=== PATIENT | female | born 1995 | race Caucasian/White ===

== ENCOUNTER 2025-02-23 12:54 | Emergency (ER) | payer SELFPAY ==
[~2025-02-23] VITALS: Ht 165.1 cm; Wt 45.4 kg
[2025-02-23 13:06] VITALS: BP 124/97; PULSE 90; RESP 16; TEMP 98.4; O2SAT 100
== END 2025-02-23 14:16 | disposition left against medical advice (07) ==
LOC: ER 12:55
DX: R53.1 Weakness (principal); R63.0 Anorexia; Z53.21 Procedure and treatment not carried out due to patient leaving prior to being seen by health care provider; Z88.1 Allergy status to other antibiotic agents

== ENCOUNTER 2025-03-10 11:13 | Emergency (ER) | payer MEDICAID ==
[~2025-03-10] VITALS: Ht 167.6 cm; Wt 45.9 kg
[2025-03-10 12:18] LABS: BASOPHILS % (AUTO) 0.6 % (0-1); EOSINOPHILS # (AUTO) 0.1 X10'3 (0-0.9); HEMATOCRIT 28.3 % (35.0-45.0); HEMOGLOBIN 8.9 g/dl (12.0-16.0); LYMPHOCYTES # (AUTO) 1.1 X10'3 (1.1-4.8); LYMPHOCYTES % (AUTO) 26.2 % (21-51); MEAN CORPUSCULAR HEMOGLOBIN 20.5 PG (27.0-31.0); MEAN CORPUSCULAR HGB CONC 31.6 g/dL (33.0-36.5); MEAN CORPUSCULAR VOLUME 64.9 FL (78-98); MEAN PLATELET VOLUME 8.7 FL (7.4-10.4); MONOCYTES # (AUTO) 0.4 X10'3 (0-0.9); MONOCYTES % (AUTO) 8.2 % (2-12); NEUTROPHILS # (AUTO) 2.7 X10'3 (1.8-7.7); PLATELET COUNT 228 X10'3 (140-440); RED BLOOD COUNT 4.36 X10'6 (4.20-5.60); WHITE BLOOD COUNT 4.3 X10'3 (4.5-11.0)
[2025-03-10 12:19] LABS: BILIRUBIN,URINE NEGATIVE (Neg); CLARITY,URINE CLEAR (Clear); COLOR,URINE YELLOW (Yellow); GLUCOSE, URINE NEGATIVE (Neg); KETONES,URINE 40 mg/dl (Neg); LEUKOCYTE ESTERASE ,URINE NEGATIVE (Neg); NITRITES, URINE NEGATIVE (Neg); OCCULT BLOOD,URINE LARGE (Neg); PH,URINE 7.5 (4.8-8.0); PROTEIN,URINE NEGATIVE (Neg); UROBILINOGEN,URINE 0.2 E.U/dL (0.2-1.0)
[2025-03-10 12:25] LABS: URINE HCG NEGATIVE (NEG)
[2025-03-10 12:27] LABS: UA COLLECTION TYPE VOIDED
[2025-03-10 12:29] LABS: BACTERIA,URINE FEW /HPF (Neg); MUCUS STRANDS FEW /LPF (Neg); SQUAMOUS EPITHELIAL CELL,UR FEW /LPF (FEW); WBC,URINE 0-4 /HPF (0-4)
[2025-03-10 12:32] LABS: ANISOCYTOSIS 3+; HYPOCHROMASIA 2+; MICROCYTOSIS 2+; PLATELET ESTIMATE NORMAL
[2025-03-10 12:33] LABS: ALANINE AMINOTRANSFERASE 16 U/L (12-78); ALBUMIN 3.8 G/DL (3.4-5.0); ALBUMIN/GLOBULIN RATIO 1.2 (1.1-1.5); ALKALINE PHOSPHATASE 47 IU/L (46-116); ANION GAP 12 (8-16); ASPARTATE AMINO TRANSFERASE 15 U/L (10-37); BILIRUBIN,TOTAL 0.8 MG/DL (0.1-1.0); BLOOD UREA NITROGEN 13 MG/DL (7-18); BUN/CREATININE RATIO 16.9 (10.0-20.0); CALCIUM 8.5 MG/DL (8.5-10.1); CHLORIDE 106 MMOL/L (99-107); CREATININE 0.77 MG/DL (0.40-0.90); ELLIPTOCYTES FEW; GLUCOSE 90 MG/DL (70-104); POTASSIUM 3.3 MMOL/L (3.5-5.1); SODIUM 138 MMOL/L (135-145); TEAR DROP CELLS FEW; TOTAL PROTEIN 6.9 G/DL (6.4-8.2); eCRCL 79 ML/MIN; eGFR 89 ML/MIN
--- NOTE | 2025-03-10 13:05 | Physician Documentation ---
History of Present Illness ~ Chief Complaint: Dizziness Stated Complaint: DIZZY/HEADACHE Time Seen by MD: 11:24 Primary Medical Doctor: None Mode of Arrival: EMS, Ambulatory HPI 29 year old female reports that she was moving boxes at a storage unit today and briefly felt weak and dizzy. BIB EMS. She is asymptomatic now including no complaints of headache, fevers, chest pain, SOB, dizziness, N/V/D, urinary symptoms. Medication Reconciliation Allergies: Coded Allergies: amoxicillin (Verified Allergy, Unknown, 02/23/25) pineapple (Verified Allergy, Unknown, unknown, 03/10/25) Uncoded Allergies: CANTELOPE (Allergy, Unknown, 03/10/25) Past Medical History Last Menstrual Period: Mar 08, 2025 Review of Systems All Other Systems at this time: Reviewed and Negative Physical Exam Vital Signs: RN Vital Signs have been reviewed: Yes, Temperature: 98.2, Source: Oral, Heart Rate: 60, Respiratory Rate: 13, BP: 119/85, Pulse Oximetry: 100, Weight: 45.910 Oxygen Flow Rate: 0 Physical Exam HEENT: PERRL, moist oral mucosa, EOMI Pulmonary: No respiratory distress Cardiac: RRR, no murmur, rub or gallop MSK: no deformity Skin: w/d/i, no rash Neuro: alert, nonfocal Psych: normal affect Progress Results/Orders Results/Orders Orders - MERCED MCCRACKEN MD Electrocardiogram (03/10/25 11:17) Completed Orders - MERCED MCCRACKEN MD Cbc/Diff (03/10/25 11:38) CMP (03/10/25 11:38) Hcg, Ur Ql (03/10/25 11:38) Ua W/Microscopic, Cult If Ind (03/10/25 12:05) Vital Signs 03/10/25 03/10/25 03/10/25 11:22 11:37 12:35 Temp 98.2 98.2 Pulse 83 60 Resp 16 16 13 B/P (MAP) 116/80 119/85 (96) Pulse Ox 100 100 O2 Flow Rate 0 0 Laboratory Tests Test 03/10/25 11:56 03/10/25 12:05 White Blood Count 4.3 L Red Blood Count 4.36 Hemoglobin 8.9 L Hematocrit 28.3 L Mean Corpuscular Volume 64.9 L Mean Corpuscular Hemoglobin 20.5 L Mean Corpuscular Hemoglobin Concent 31.6 L Red Cell Distribution Width 23.0 H Platelet Count 228 Mean Platelet Volume 8.7 Neutrophils (%) (Auto) 63.0 Lymphocytes (%) (Auto) 26.2 Monocytes (%) (Auto) 8.2 Eosinophils (%) (Auto) 2.0 Basophils (%) (Auto) 0.6 Neutrophils # (Auto) 2.7 Lymphocytes # (Auto) 1.1 Monocytes # (Auto) 0.4 Eosinophils # (Auto) 0.1 Basophils # (Auto) 0.0 CBC Comment Platelet Estimate Normal Red Blood Cell Morphology Perf Hypochromasia 2+ Basophilic Stippling Anisocytosis 3+ Microcytosis 2+ Tear Drop Cells Few Elliptocytes Few Sodium Level 138 Potassium Level 3.3 L Chloride Level 106 Carbon Dioxide Level 20.0 L Anion Gap 12 Blood Urea Nitrogen 13 Creatinine 0.77 Estimated GFR/1.73 m2 89 BUN/Creatinine Ratio 16.9 Glucose Level 90 Calcium Level 8.5 Total Bilirubin 0.8 Aspartate Amino Transf (AST/SGOT) 15 Alanine Aminotransferase (ALT/SGPT) 16 Alkaline Phosphatase 47 Total Protein 6.9 Albumin 3.8 Globulin 3.1 Albumin/Globulin Ratio 1.2 Chemistry Comments Urine Specimen Description Voided Urine Color Yellow Urine Clarity Clear Urine pH 7.5 Urine Specific [place] 1.015 Urine Protein Negative Urine Glucose (UA) Negative Urine Ketones 40 H Urine Occult Blood Large H Urine Nitrite Negative Urine Bilirubin Negative Urine Urobilinogen 0.2 Urine Leukocyte Esterase Negative Urine RBC 10-20 Urine WBC 0-4 Urine Squamous Epithelial Cells Few Urine Bacteria Few Urine Mucus Few Urine Culture Indicated Not ind Volume Urine Centrifuged 10 ml Urine HCG, Qualitative Negative Urine Comment Medical Decision Making Findings 29 year old female with incident described above, well-appearing and unremarkabl e exam/vitals now. Workup similarly unremarkable other than for anemia. Counseled more iron-containing foods, return precautions. Differential Dx:Considerations: Include: anemia, dysrhythmia, electrolyte imbalance, encephalopathy, hypoglycemia, hypotension, hypovolemia, renal failure, vertigo peripheral, vestibular neuronitis Departure Disposition: HOME / SELF CARE / HOMELESS Impression: Primary Impression: Anemia Condition: Stable Discharge Instructions: Anemia Referrals: NO PRIMARY CARE PROVIDER (PCP) Education Educated: Patient Educated regarding: diagnosis, treatment, prognosis, need for follow up Signature Scribe Signature: .. Attestation: . MERCED MCCRACKEN MD Mar 10, 2025 13:05
[2025-03-10 13:19] VITALS: BP 128/98; PULSE 86; RESP 14; TEMP 98.2; O2SAT 100
--- NOTE | 2025-03-10 15:30 | ELECTROCARDIOGRAPH REPORT ---
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 Brian Hdz Measurements Intervals [place] Rate: 80 P: 98 OK: 172 QRS: 73 QRSD: 105 T: 64 QT: 445 QTc: 514 Interpretive Statements Atrial-paced complexes Prolonged QT interval Electronically Signed On 03-10-2025 18:47:[address] Brian Hdz Please click the below link to view image of tracing.
== END 2025-03-10 13:20 | disposition home or self-care (01) ==
LOC: ER 11:14
DX: D64.9 Anemia, unspecified (principal); Z88.0 Allergy status to penicillin
CPT/HCPCS: 36415; 80053; 81001; 81025; 85025; 93005; 99284; J7030; 85008